=== PATIENT | female | born 1990 | race Caucasian/White ===

== ENCOUNTER 2017-04-18 22:09 | Emergency (ER) | payer OTHER ==
[2017-04-18 22:32] LABS: Urine Bilirubin Negative (NEGATIVE); Urine Blood 250 /ul (NEGATIVE); Urine Ketone 5 mg/dL (NEGATIVE); Urine Nitrite Negative (NEGATIVE); Urine Protein 100 mg/dL (NEGATIVE); Urine Specific Gravity >=1.030 SP.GR. (1.005-1.010); Urine Urobilinogen Normal (NORMAL); Urine pH 5.5 pH (5.0-7.0)
[2017-04-18 22:47] LABS: Urine Appearance Cloudy; Urine Bacteria 3+; Urine Color Brown; Urine RBC >50 /hpf (0-5); Urine WBC 0-5 /hpf (0-5)
--- NOTE | 2017-04-18 23:29 | ERNOTE ---
ER Female HPI Stated Complaint: UTI? Presenting Symptoms: pelvic pain Time Seen by Provider: 04/18/17 23:22 Source: patient Exam Limitations: no limitations Immunizations: IMMUNIZATION HX Immunizations Up to Date Yes History of Influenza Vaccine No Hx Pneumococcal Vaccination No Allergies/Adverse Reactions: Allergies Sulfa (Sulfonamide Antibiotics) Allergy (Verified 04/18/17 22:17) Home Medications: HOME MEDICATIONS NK [No Home Medication] 04/18/17 [Last Taken Unknown] - History of Present Illness Narrative: left flank pain with low abd pain today Timing: Present: getting worse Quality: Present: moderate Onset Location: Present: left flank Radiation: Present: suprapubic Activities at Onset: Present: none Review of Systems - Review of Systems Constitutional: Present: chills, diaphoresis. Absent: recent illness EYE: Present: no symptoms reported ENT: Present: no symptoms reported Respiratory: Absent: shortness of breath Cardiology: Absent: chest pain Gastrointestinal/Abdominal: Present: nausea Genitourinary: Present: See HPI, frequency, dysuria Musculoskeletal: Present: no symptoms reported Skin: Present: no symptoms reported Neurological: Present: no symptoms reported Endocrine: Present: no symptoms reported Hematologic/Lymphatic: Present: no symptoms reported Psych: Present: no symptoms reported - Patient's Past Medical History Patient History - Medical: UTI'S Patient History - Cardiac/Respiratory: No pertinent hx Patient History - Cancer: No Hx of Cancer Patient History - Surgical Procedures: Patient History - Other: None LMP (females 10-50): last week - Social History Living Situations: home Abuse History: No History of abuse Psych History: No pertinent hx Smoking Status: Never smoker Have you smoked in the past 12 months: No Do you dip or chew tobacco: No Alcohol Use: none Drug Use: none - Immunizations Immunizations Up to Date: Yes Hx Pneumococcal Vaccination: No History of Influenza Vaccine: No Physical Exam - Physical Exam General Appearance: Present: wd/wn, alert, no apparent distress Head Exam: Present: normal inspection, no evidence of injury Respiratory: Present: no respiratory distress, no accessory muscle use Cardiovascular/Chest: Present: regular rate, rhythm, no murmur Gastrointestinal/Abdominal: Present: normal bowel sounds, tenderness - RLQ mild tend Back Exam: Present: CVA tenderness (L) Extremity Exam: Present: normal inspection, normal range of motion Neurological Exam: Present: alert, oriented, normal mood/affect, no motor/ sensory deficits Skin Exam: Present: normal color, warm/dry ED Progress - Results and Orders Patient's Lab Results:: I have reviewed the patient's lab results. Results and Orders: Laboratory Tests 04/18/17 22:28 Urine Color Brown Urine Appearance Cloudy Urine pH 5.5 Ur Specific [place] >=1.030 Urine Protein 100 H Urine Glucose (UA) Negative Urine Ketones 5 Urine Blood 250 H Urine Nitrate Negative Urine Bilirubin Negative Prot Sulfosalicylic Acd 2+ H Urine Urobilinogen Normal Ur Leukocyte Esterase Negative Urine RBC >50 H Urine WBC 0-5 Ur Epithelial Cells >25 H Urine Bacteria 3+ H Urine Culture Comments No culture indicated - Vital Signs Patient's Vital Signs:: I have reviewed the patient's vital signs. Vital Signs: Vital Signs 04/18/17 22:17 Temperature 36.5 C Pulse Rate 85 Respiratory 16 Rate Blood Pressure 115/83 O2 Sat by Pulse 97 Oximetry - CT/Ultrasound CT/Ultrasound Narrative: non obstructing calcifications in bilateral kidneys. left hydroureter and hydronephrosis without obstructing stone, consider recently passed stone, clinical correlation suggested. - Progress/Reassessment Chief Complaint: Genitourinary Problem Progress Note-Subjective: 04/19/17 discussed renal lithiasis with the patient. Encouraged stone retrieval and taking to her PCP to send for analysis especially due to her young age. Pt expressed understanding Departure Clinical Impression: Renal lithiasis - Departure Disposition: Home Follow Up Needed Condition: Good Instructions: Renal Colic, [id number], Kidney Stones, [id number] Additional Instructions: strain all your urine. Take your stone to your primary care physician for evaluation. Drink plenty of water.
[2017-04-19 03:20] VITALS: BP 101/68
== END 2017-04-19 01:05 | disposition home or self-care (01) ==
LOC: ER 22:09
DX: N20.0 Calculus of kidney (principal); Z87.440 Personal history of urinary (tract) infections